=== PATIENT | female | born 1980 | race Caucasian/White ===

== ENCOUNTER 2018-07-06 22:14 | Inpatient (IN) ==
[2018-07-06] MEDS ORDERED: Sodium Chlor 0.9% Inj 500 ML IV.SIG ONE (22:59)
[2018-07-06] MEDS ORDERED: Vancomycin Inj 1,000 MG in Sodium Chlor 0.9% Inj 250 ML IV.SIG ONE (23:00)
[2018-07-06] MEDS ORDERED: Acetaminophen 325 MG Tablet PO ONE (23:00)
[2018-07-06] MEDS ORDERED: Piperacil/Tazo 3.375 GM Premix 50 ML IV.SIG ONE (23:00)
--- NOTE | 2018-07-06 23:32 | XR ---
EXAM DATE: 07/06/2018 11:27 PM EST AGE/SEX: 38 years / Female INDICATIONS: Shortness of breath. CLINICAL DATA: This is the patient's initial encounter. Patient reports that signs and symptoms have been present for 1 week and indicates a pain score of 10/10. MEDICAL/SURGICAL HISTORY: Diabetes. Hypertension. Myocardial infarction. . Coronary artery s tent COMPARISON: . FINDINGS: Single AP view the chest. The lungs are clear. Cardiomediastinal silhouette within normal limits. No evidence of pleural effusion or pneumothorax. CONCLUSION: No acute cardiopulmonary disease identified. Electronically signed by: Luis Felipe Mcfadden MD 07/06/2018 11:31 PM EST
[2018-07-06 23:34] LABS: Baso # (Auto) 0.1 th/mm3 (0.0-0.2); Baso % (Auto) 1.1 % (0.0-2.0); Eos # (Auto) 0.2 th/mm3 (0.0-0.4); Eos % (Auto) 1.9 % (0.0-4.0); Hematocrit 40.7 % (35.0-46.0); Hemoglobin 14.1 gm/dL (11.6-15.3); Lymph # (Auto) 4.1 th/mm3 (1.0-4.8); Mean Corpuscular HGB Conc 34.6 % (32.0-36.0); Mean Corpuscular Hemoglobin 29.5 pg (27.0-34.0); Mean Corpuscular Volume 85.2 fL (80.0-100.0); Mean Platelet Volume 7.9 fL (7.0-11.0); Mono # (Auto) 0.7 th/mm3 (0.0-0.9); Mono % (Auto) 5.8 % (0.0-8.0); Neut # (Auto) 6.4 th/mm3 (1.8-7.7); Neut % (Auto) 55.2 % (16.0-70.0); Platelet Count 298 th/mm3 (150-450); Red Blood Count 4.78 mil/mm3 (4.00-5.30); Red Cell Distribution Width 14.3 % (11.6-17.2); White Blood Count 11.5 th/mm3 (4.0-11.0)
--- NOTE | 2018-07-06 23:39 | XR ---
EXAM DATE: 07/06/2018 11:30 PM EST AGE/SEX: 38 years / Female INDICATIONS: Right foot pain. CLINICAL DATA: This is the patient's initial encounter. Patient reports that signs and symptoms have been present for 1 day and indicates a pain score of 10/10. MEDICAL/SURGICAL HISTORY: Diabetes. Hypertension. Myocardial infarction. Coronary artery sten t. COMPARISON: . FINDINGS: 3 views of the right foot. Moderate-sized plantar calcaneal spur. Small Achilles calcaneal spur. Mode rate-sized spur at the dorsal margin of the talar head. Bone alignment within normal limits. Vertical linear lucency through the central navicular on a single AP view. This indicates possible acute nond isplaced fracture. There is a fracture of the fifth toe proximal phalanx with advanced bone callus fo rmation suggesting an old fracture. CONCLUSION: 1. Possible acute nondisplaced vertical fracture of the mid navicular bone. Recommend correlation wi th the site of the patient's pain. This is seen on only one view. 2. Old fifth toe proximal phalanx fracture. 3. Calcaneal spurs. Electronically signed by: Luis Felipe Mcfadden MD 07/06/2018 11:37 PM EST
--- NOTE | 2018-07-06 23:42 | XR ---
EXAM DATE: 07/06/2018 11:29 PM EST AGE/SEX: 38 years / Female INDICATIONS: Left foot heel pain. CLINICAL DATA: This is the patient's initial encounter. Patient reports that signs and symptoms have been present for 1 day and indicates a pain score of 10/10. MEDICAL/SURGICAL HISTORY: Diabetes. Myocardial infarction. Hypertension. Coronary artery sten t. COMPARISON: . FINDINGS: 3 views of the left foot. There is deformity of the base of the second toe proximal phalanx with exte nsive periosteal new bone and possible old bone erosion. Marginal bone erosions of the second toe met atarsal head noted. No evidence of acute fracture. Dorsal spur at the head of the talus. 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 Calcaneus is within normal limits. CONCLUSION: 1. No evidence of acute fracture. 2. Deformity of the second toe proximal phalanx base and erosion of the second metatarsal head. Find ings suggest chronic erosive arthritis. Difficult diagnosis includes rheumatoid arthritis and gout. 3. 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 No sit e of tarsal coalition is identified. Electronically signed by: Luis Felipe Mcfadden MD 07/06/2018 11:41 PM EST
[2018-07-06 23:48] LABS: Activated Partial Thrombo Time 25.8 sec (23.4-31.7); Prothrombin Time 9.8 sec (9.8-11.6)
[2018-07-06 23:50] LABS: Bacteria,Urine Occasional /hpf; Bilirubin,Urine Negative (Negative); Clarity,Urine Cloudy (Clear); Color,Urine Yellow (Yellw/Straw); Glucose,Urine (UA) 500 or Greater mg/dL (Negative); Leukocyte Esterase,Urine Large (Negative); Mucus,Urine Few /lpf (Occasional); Nitrite,Urine Negative (Negative); Specific Gravity,Urine 1.016 (1.002-1.035); Squamous Epithelial Cell,Urine 6 /hpf (0-5)
[2018-07-06 23:53] LABS: Albumin 3.1 g/dL (3.4-5.0); Anion Gap 8 meq/L (5-15); Aspartate Aminotransferase 16 U/L (15-37); Blood Urea Nitrogen 12 mg/dL (7-18); Calcium 8.6 mg/dL (8.5-10.1); Carbon Dioxide 25.5 meq/L (21.0-32.0); Chloride 102 meq/L (98-107); Glomerular Filtration Rate 75 mL/min (>89); Glucose,Random 265 mg/dL (74-106); Lipase 285 U/L (73-393); Magnesium 1.7 mg/dL (1.5-2.5); Potassium 3.6 meq/L (3.5-5.1); Sodium 135 meq/L (136-145)
[2018-07-06 23:54] LABS: Alanine Aminotransferase 20 U/L (10-53)
[2018-07-06 23:58] LABS: Alkaline Phosphatase 98 U/L (45-117); Total Protein 7.4 g/dL (6.4-8.2)
[2018-07-06] MEDS ORDERED: Gabapentin 300 MG Capsule PO ONE (23:59)
--- NOTE | 2018-07-07 00:47 | ED ---
HPI General Chief complaint: Skin/Abscess/Foreign Body Stated complaint: Swollen R & L feet Time Seen by Provider: 07/06/18 22:41 Source: patient Mode of arrival: ambulatory Limitations: no limitations History of Present Illness HPI narrative: The patient is a 38 year old female who presents to the [facility] emergency department with a history of left foot pain that she reports is been present since February 2017. She reports that at that time she did undergo surgical debridement of her foot along a callus along the heel, and an area on the ball of the foot. The patient reports that this was in [place]. The patient reports that she is recently moved to the area a few weeks ago. The patient reports having a history of diabetes, hypertension, hyperlipidemia, diabetic neuropathy, and coronary artery disease status post myocardial infarction x2. The patient reports that she was diagnosed with diabetes in 2005. The patient has not established with a primary care physician locally. The patient reports that she has been out of all of her chronic medications except for insulin he had a low-dose aspirin since July 2017. She denies having any known fevers. The patient reports that 4-5 days ago she began to have swelling and pain in the right foot. The patient reports that she is also recently developed an area of erythema along the lateral aspect of the left foot. She denies any injuries to her feet, trauma, or fall. On review of systems otherwise, the patient denies having any cough, congestion, neck pain, chest pain, shortness of breath, abdominal pain, vomiting , diarrhea, urinary symptoms, or neurologic symptoms. Patient reports that her last bowel movement was yesterday. Related Data Home Medications Medication Instructions Recorded Confirmed aspirin [Aspir-81] 81 mg PO DAILY 07/06/18 07/06/18 atorvastatin 10 mg PO DAILY 07/06/18 07/06/18 carvedilol 3.125 mg PO BID 07/06/18 07/06/18 gabapentin 300 mg PO TID 07/06/18 07/06/18 isosorbide mononitrate 30 mg PO DAILY 07/06/18 07/06/18 meloxicam 15 mg PO DAILY 07/06/18 07/06/18 metformin 500 mg PO BID 07/06/18 07/06/18 nitroglycerin [Nitrostat] 0.4 mg SUBLINGUAL Q5-15M PRN 07/06/18 07/06/18 pantoprazole 40 mg PO DAILY 07/06/18 07/06/18 ramipril 2.5 mg PO DAILY 07/06/18 07/06/18 ticagrelor [Brilinta] 90 mg PO BID 07/06/18 07/06/18 Allergies Allergy/AdvReac Type Severity Reaction Status Date / Time citalopram Allergy Intermediate NAUSEA Verified 07/06/18 22:31 tramadol Allergy Intermediate NAUSEA Verified 07/06/18 22:31 ketorolac Allergy Unknown Hives Verified 07/06/18 22:31 morphine Allergy Unknown Hives Verified 07/06/18 22:31 Review of Systems ROS: all other systems reviewed are negative [facility] Medical History Medical History Diabetes (Acute) Diabetic neuropathy (Acute) Hyperlipidemia (Acute) Myocardial infarct (Acute) Surgical History Surgical History H/O heart artery stent (Acute) Hx of cholecystectomy (Acute) S/P debridement (Acute) Family History Family History Grandparent HTN (hypertension) Diabetes Social History Social History Substance History: No History of Abuse Second Hand Smoke Exposure: Yes Smoking Status: Current every day smoker Tobacco Type: Cigarettes Packs Per Day: 1 Cigarettes Per Day: 20.0 How Often Do You Have a Drink Containing Alcohol: Never Recent Travel in [facility] within the Last 8 Weeks: No Recent Out of Country Travel within the Last 8 Weeks: No Immunization History Tetanus Immunization: Unsure Exam Const General: cooperative, no acute distress and well developed Nutritional Appearance: well nourished Orientation: alert, awake and oriented x3 HENMT Head: normocephalic and atraumatic Nose: no nasal discharge and no epistaxis Mouth: moist mucous membranes Throat: posterior oropharynx normal and uvula midline Eyes Sclera: normal sclerae Pupils: PERRL Neck Neck: no meningeal signs, trachea midline and no JVD Resp Effort & Inspection: no use of accessory muscles Auscultation: clear to auscultation bilaterally Cardio Rate: regular rate Rhythm: regular rhythm Heart Sounds: no murmurs GI Inspection: non-distended Palpation: soft, no hepatosplenomegaly, no guarding, not rigid and nontender Auscultation: normal bowel sounds Back/Spine/Pelvis Back: no CVA tenderness Skin General: dry skin (warm) Neuro General: alert, awake, oriented x3 and other (Grossly nonfocal.) Speech: speech normal Motor: no movement abnormalities noted Extrem General: normal to inspection, no clubbing, no cyanosis and edema (The patient is noted to have pedal edema involving the right foot. The patient on examination of the left foot is noted to have tenderness on palpation of the second digit, erythema along the lateral aspect of the left foot, callus noted along the posterior aspect of the left sole, overlying the lateral aspect of the heel. No active drainage at this time. She reports that when she walks on the foot she does notice some drainage. 2+ pulses in all 4 extremities. Soft compartments noted. Intact sensation over all digits. Less than 3-second capillary refill.) Psych Mood: congruent mood Affect: normal affect Judgment: judgment good Course Initial Documented Vital Signs Temperature 97.6 F 07/06/18 22:25 Pulse Rate 99 H 07/06/18 22:25 Respiratory Rate 20 07/06/18 22:25 Blood Pressure 168/95 H 07/06/18 22:25 Pulse Oximetry 99 07/06/18 22:25 Last Documented Vital Signs Temperature 97.7 F 07/07/18 05:19 Pulse Rate 79 07/07/18 05:19 Respiratory Rate 12 07/07/18 05:19 Blood Pressure 128/75 07/07/18 05:19 Pulse Oximetry 95 07/07/18 05:19 Medical Decision Making [facility] Narrative Medical decision making narrative: During the course of the patient's emergency department visit, the patient's history, examination, and differential diagnosis were reviewed with the patient. The patient was placed on a image editor with oximetry and frequent blood pressure monitoring. The patient had IV access obtained and blood work sent for analysis. A diagnostic evaluation was started regarding the patient bilateral feet pain. The patient was initially provided Tylenol 650 p.o. x1, Neurontin 300 mg p.o. x1 as the patient has been on this in the past with pain relief regarding her neuropathy. Patient had a sepsis workup started as she did arrive tachycardic with a heart rate of 99, Zosyn and vancomycin was started, as she does have an area of cellulitis along lateral foot. The patient's diagnostic studies are remarkable for a white count of 11.5, hemoglobin 14.1, platelets 298 with a normal differential, PT PTT within normal limits, chemistries remarkable for sodium 135, glucose 265 bilirubin 0.1, troponin I less than 0.02, lipase within normal limits. Urinalysis shows large leukocyte esterase 9 RBCs, WBCs innumerable, many, occasional bacteria, culture indicated. CHEST X-RAY: shows no acute cardiopulmonary disease, right foot x- ray reveals possible acute nondisplaced vertical fracture of the mid navicular bone, recommend correlation with the site of the patient's pain. The patient has diffuse pain on palpation, therefore CT scan of the right foot has been ordered to evaluate for possible occult fracture, old fifth toe proximal phalanx fracture, calcaneal spurs are noted. An x-ray of the left foot reveals no evidence of acute fracture. Deformity of second toe proximal phalanx base and erosion of the second metatarsal head is noted, findings suggest chronic erosive arthritis, difficult differential diagnosis includes rheumatoid arthritis and gout. Prominent dorsal bone spur at the talus is a finding sometimes seen with tarsal correlation no site of tarsal coalition is identified. CT scan of the right foot shows a nondisplaced acute fracture of the navicular bone. Subacute to old fracture of the fifth proximal phalanx with bone callus/ advanced bone bridging. The patient was placed in a short posterior leg splint. The patient was given Dilaudid for pain, Zofran for nausea. The patient will be admitted to the hospital for a cellulitis of the left lower extremity. The patient's case including history, pertinent physical examination findings, and laboratory studies were discussed with Dr. Howell. It was agreed that the patient would be admitted to the hospitalist service. The patient's results were discussed with the patient, including the plan of care. I explained that further testing and/ or monitoring is indicated based on the patient's history, examination, and/ or laboratory findings. Therefore, I recommended admission for additional evaluation. The patient expressed understanding and was agreeable with this plan. The patient was admitted to the hospital in stable condition and sent to a bed under the care of the [facility] service. Medical Screen Exam Complete: Yes Emergency Medical Condition: Yes Differential Diagnosis Differential Diagnosis: Cellulitis, versus sepsis, versus osteomyelitis, versus stress fracture, versus neuropathy Medical Records Medical records reviewed: Yes I reviewed the patient's medical records. Lab Data Lab results reviewed: Yes I reviewed the patient's lab results. Result diagrams: 07/06/18 23:25 07/06/18 23:25 POC Results POC Urine Results Negative Lab Results 07/06/18 07/06/18 07/06/18 Range/Units 23:25 23:25 23:25 WBC 11.5 H (4.0-11.0) th/mm3 RBC 4.78 (4.00-5.30) mil/mm3 Hgb 14.1 (11.6-15.3) gm/dL Hct 40.7 (35.0-46.0) % MCV 85.2 (80.0-100.0) fL MCH 29.5 (27.0-34.0) pg MCHC 34.6 (32.0-36.0) % RDW 14.3 (11.6-17.2) % Plt Count 298 (150-450) th/mm3 MPV 7.9 (7.0-11.0) fL Neut % (Auto) 55.2 (16.0-70.0) % Lymph % (Auto) 36.0 (9.0-44.0) % Kern % (Auto) 5.8 (0.0-8.0) % Eos % (Auto) 1.9 (0.0-4.0) % Baso % (Auto) 1.1 (0.0-2.0) % Neut # (Auto) 6.4 (1.8-7.7) th/mm3 Lymph # (Auto) 4.1 (1.0-4.8) th/mm3 Kern # (Auto) 0.7 (0.0-0.9) th/mm3 Eos # (Auto) 0.2 (0.0-0.4) th/mm3 Baso # (Auto) 0.1 (0.0-0.2) th/mm3 WBC Differential . Differential Comment Auto diff final ESR (0-20) mm/hr PT 9.8 (9.8-11.6) sec INR 1.0 Ratio APTT 25.8 (23.4-31.7) sec Sodium 135 L (136-145) meq/L Potassium 3.6 (3.5-5.1) meq/L Chloride 102 (98-107) meq/L Carbon Dioxide 25.5 (21.0-32.0) meq/L Anion Gap 8 (5-15) meq/L BUN 12 (7-18) mg/dL Creatinine 0.85 (0.50-1.00) mg/dL Estimated GFR 75 L (>89) mL/min Random Glucose 265 H (74-106) mg/dL Lactic Acid (0.4-2.0) mmol/L Calcium 8.6 (8.5-10.1) mg/dL Magnesium 1.7 (1.5-2.5) mg/dL Total Bilirubin 0.1 L (0.2-1.0) mg/dL AST 16 (15-37) U/L ALT 20 (10-53) U/L Alkaline Phosphatase 98 (45-117) U/L Troponin I Less than 0.02 L (0.02-0.05) ng/mL Total Protein 7.4 (6.4-8.2) g/dL Albumin 3.1 L (3.4-5.0) g/dL Lipase 285 (73-393) U/L Urine Color (Yellw/Straw) Urine Clarity (Clear) Urine pH (5.0-8.5) Ur Specific Mora (1.002-1.035) Urine Protein (Neg-Trace) mg/dL Urine Glucose (UA) (Negative) mg/dL Urine Ketones (Negative) mg/dL Urine Occult Blood (Negative) Urine Nitrate (Negative) Urine Bilirubin (Negative) Urine Urobilinogen (Less than 2) mg/dL Ur Leukocyte Esterase (Negative) Urine RBC (0-3) /hpf Urine WBC (0-5) /hpf Urine WBC Clumps (None) Ur Squamous Epith Cells (0-5) /hpf Urine Bacteria (None) /hpf Urine Mucus (Occasional) /lpf Micro UA Comment Ur Microscopic Review Urine Culture Comments 07/06/18 07/06/18 07/06/18 Range/Units 23:25 23:25 23:35 WBC (4.0-11.0) th/mm3 RBC (4.00-5.30) mil/mm3 Hgb (11.6-15.3) gm/dL Hct (35.0-46.0) % MCV (80.0-100.0) fL MCH (27.0-34.0) pg MCHC (32.0-36.0) % RDW (11.6-17.2) % Plt Count (150-450) th/mm3 MPV (7.0-11.0) fL Neut % (Auto) (16.0-70.0) % Lymph % (Auto) (9.0-44.0) % Kern % (Auto) (0.0-8.0) % Eos % (Auto) (0.0-4.0) % Baso % (Auto) (0.0-2.0) % Neut # (Auto) (1.8-7.7) th/mm3 Lymph # (Auto) (1.0-4.8) th/mm3 Kern # (Auto) (0.0-0.9) th/mm3 Eos # (Auto) (0.0-0.4) th/mm3 Baso # (Auto) (0.0-0.2) th/mm3 WBC Differential Differential Comment ESR 16 (0-20) mm/hr PT (9.8-11.6) sec INR Ratio APTT (23.4-31.7) sec Sodium (136-145) meq/L Potassium (3.5-5.1) meq/L Chloride (98-107) meq/L Carbon Dioxide (21.0-32.0) meq/L Anion Gap (5-15) meq/L BUN (7-18) mg/dL Creatinine (0.50-1.00) mg/dL Estimated GFR (>89) mL/min Random Glucose (74-106) mg/dL Lactic Acid 0.9 (0.4-2.0) mmol/L Calcium (8.5-10.1) mg/dL Magnesium (1.5-2.5) mg/dL Total Bilirubin (0.2-1.0) mg/dL AST (15-37) U/L ALT (10-53) U/L Alkaline Phosphatase (45-117) U/L Troponin I (0.02-0.05) ng/mL Total Protein (6.4-8.2) g/dL Albumin (3.4-5.0) g/dL Lipase (73-393) U/L Urine Color Yellow (Yellw/Straw) Urine Clarity Cloudy H (Clear) Urine pH 6.0 (5.0-8.5) Ur Specific Mora 1.016 (1.002-1.035) Urine Protein 30 H (Neg-Trace) mg/dL Urine Glucose (UA) 500 or greater (Negative) mg/dL Urine Ketones Negative (Negative) mg/dL Urine Occult Blood Negative (Negative) Urine Nitrate Negative (Negative) Urine Bilirubin Negative (Negative) Urine Urobilinogen Less than 2 (Less than 2) mg/dL Ur Leukocyte Esterase Large H (Negative) Urine RBC 9 H (0-3) /hpf Urine WBC (0-5) /hpf Urine WBC Clumps Many H (None) Ur Squamous Epith Cells 6 (0-5) /hpf Urine Bacteria Occasional H (None) /hpf Urine Mucus Few H (Occasional) /lpf Micro UA Comment Culture indicated Ur Microscopic Review Not Reportable Urine Culture Comments Culture indicated Imaging Data Radiologist's impression: Foot X-Ray 07/06/18 22:56 CONCLUSION: 1. No evidence of acute fracture. 2. Deformity of the second toe proximal phalanx base and erosion of the second metatarsal head. Findings suggest chronic erosive arthritis. Difficult diagnosis includes rheumatoid arthritis and gout. 3. 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 No site of tarsal coalition is identified. Foot X-Ray 07/06/18 22:56 CONCLUSION: 1. Possible acute nondisplaced vertical fracture of the mid navicular bone. Recommend correlation with the site of the patient's pain. This is seen on only one view. 2. Old fifth toe proximal phalanx fracture. 3. Calcaneal spurs. Chest X-Ray 07/06/18 22:57 CONCLUSION: No acute cardiopulmonary disease identified. Foot CT 07/07/18 00:02 CONCLUSION: 1. Nondisplaced acute fracture of the navicular. 2. Subacute to old fracture of the fifth proximal phalanx with bone callus/ advanced bone bridging. ECG Data Attestation: I personally reviewed and interpreted this ECG as follows: Interpretation: The patient had an EKG done on arrival that shows a sinus rhythm heart rate of 80, QRS duration 91 ms, QTC [address] segment elevation. T waves are inverted in lead III, V1. Discharge Plan Discharge Disposition Patient Disposition: ED Admit(ED Internal Use Only) Discharge Order Discharge Orders: ED Use Only Admit Order (Routine); Ordered 07/07/18 Ordered By: Odalys Redman Discharge Details Diagnosis: Fx navicular, foot-closed, Cellulitis Physicians Team ED Provider: Odalys Redman Primary Care Provider: Primary Care Flor Alcantara Attending Provider: Cristian Canas Other Providers: Hailey Benson Status ED Status: Left Department Discharge Information Discharge Date/Time: 07/07/18 03:51
--- NOTE | 2018-07-07 02:11 | CT ---
EXAM DATE: 07/07/2018 1:57 AM EST AGE/SEX: 38 years / Female INDICATIONS: Evaluate for fracture. CLINICAL DATA: This is the patient's initial encounter. Patient reports that signs and symptoms have been present for 3 months and indicates a pain score of 5/10. MEDICAL/SURGICAL HISTORY: Cardiovascular disease. Diabetes mellitus type II. Coronary artery stent . Cholecystectomy. RADIATION DOSE: 8.56 CTDI (mGy) COMPARISON: None. TECHNIQUE: Multiple contiguous axial images were acquired using a multirow detector CT scanner witho ut contrast. Multiplanar reconstruction was performed in the sagittal and coronal planes. Using auto mated exposure control and adjustment of the mA and/or kV according to patient size, radiation dose w as kept as low as reasonably achievable to obtain optimal diagnostic quality images. DICOM format im age data is available electronically for review and comparison. FINDINGS: There is a nondisplaced acute vertical fracture of the central navicular. No advanced bone bridging. Bone alignment within normal limits. No evidence of an old healed fracture of the fifth toe proximal phalanx. Soft tissues within normal limits. CONCLUSION: 1. Nondisplaced acute fracture of the navicular. 2. Subacute to old fracture of the fifth proximal phalanx with bone callus/advanced bone bridging. Electronically signed by: Luis Felipe Mcfadden MD 07/07/2018 2:09 AM EST
[2018-07-07] MEDS ORDERED: HYDROmorphone PF Inj 0.5 MG/0.5 ML Syringe IV.PUSH ONE (02:26)
[2018-07-07] MEDS ORDERED: Bisacodyl 10 MG Supp RECTAL PRN (03:01)
[2018-07-07] MEDS ORDERED: Dextrose 50% in Water 50 ML Vial IV.PUSH PRN (03:05)
[2018-07-07] MEDS ORDERED: Vancomycin Consult Pharmacy OTHER PRN (03:05)
[2018-07-07] MEDS: Sod Chloride 0.9% Inj 1,000 ML IV.CONT SCH ×2 (04:52→17:33)
--- NOTE | 2018-07-07 05:10 | P.HPIM ---
History of Present Illness Service: [facility] Primary Care Physician: No Primary Care Physician Chief Complaint: Left foot pain History of Present Illness: 38 y/o female with a history of HTN, HLD, diabetic neuropathy, [place], and DM presented to the ER with complaints of left foot pain. She states in February she underwent a I&D of her left heel and it has not healed since. She states over the last 4 days the pain has increased. She states the pain is throbbing, intermittent, 8/10, worse with movement, no radiation or associated symptoms. She states otc tylenol and motrin has not been helping. She states she has been out of her chronic medications since August due to loss in medicaid. She denies any chest pain, sob, fever or chills. Upon evaluation in ER patient was found to have a pain with palpation to the top of the right foot, x ray reveled a Nondisplaced acute fracture of the navicular. Inpatient Certification Inpatient Certification: I certify that the inpatient services were ordered in accordance with Medicare regulations governing the order. This includes certification that hospital inpatient services are reasonable and necessary and in the case of services not specified as inpatient-only under 42 CFR 419.22(n), that they are appropriately provided as inpatient services in accordance to with the 2-midnight benchmark under 43 CFR 412.3(e) Estimated Total Length of Stay (Days): 2 Plans for Post Hospital Care: Home Review of Systems Review of Systems: all other systems reviewed are negative [facility] Medical History Medical History Diabetes (Acute) Diabetic neuropathy (Acute) Hyperlipidemia (Acute) Myocardial infarct (Acute) Surgical History Surgical History H/O heart artery stent (Acute) Hx of cholecystectomy (Acute) S/P debridement (Acute) Family History Family History Grandparent HTN (hypertension) Diabetes Social History Social History Substance History: No History of Abuse Smoking Status: Current every day smoker Tobacco Type: Cigarettes Packs Per Day: 1 Cigarettes Per Day: 20.0 How Often Do You Have a Drink Containing Alcohol: Never Recent Travel in [facility] within the Last 8 Weeks: No Recent Out of Country Travel within the Last 8 Weeks: No Immunization History Tetanus Immunization: Unsure Medications and Allergies Allergies Allergy/AdvReac Type Severity Reaction Status Date / Time citalopram Allergy Intermediate NAUSEA Verified 07/06/18 22:31 tramadol Allergy Intermediate NAUSEA Verified 07/06/18 22:31 ketorolac Allergy Unknown Hives Verified 07/06/18 22:31 morphine Allergy Unknown Hives Verified 07/06/18 22:31 Home Medications Medication Instructions Recorded Confirmed Type aspirin [Aspir-81] 81 mg PO DAILY 07/06/18 07/06/18 History atorvastatin 10 mg PO DAILY 07/06/18 07/06/18 History carvedilol 3.125 mg PO BID 07/06/18 07/06/18 History gabapentin 300 mg PO TID 07/06/18 07/06/18 History isosorbide mononitrate 30 mg PO DAILY 07/06/18 07/06/18 History meloxicam 15 mg PO DAILY 07/06/18 07/06/18 History metformin 500 mg PO BID 07/06/18 07/06/18 History nitroglycerin [Nitrostat] 0.4 mg SUBLINGUAL Q5-15M PRN 07/06/18 07/06/18 History pantoprazole 40 mg PO DAILY 07/06/18 07/06/18 History ramipril 2.5 mg PO DAILY 07/06/18 07/06/18 History ticagrelor [Brilinta] 90 mg PO BID 07/06/18 07/06/18 History Active Medications: Active Medications Hydrocodone Bitart/Acetaminophen ([place] 5/325) 1 tab PO Q4H PRN PRN Reason: PAIN 1-10 AND/OR FEVER >101F Al Hydroxide/Mg Hydroxide (Milk Of Magnesia Liq) 30 ml PO Q12H PRN PRN Reason: Mild Constipation Bisacodyl (Dulcolax Supp) 10 mg RECTAL DAILY PRN PRN Reason: SEVERE CONSITIPATION Dextrose (D50w Vial) 50 ml IV.PUSH UNSCH PRN PRN Reason: PER HYPOGLYCEMIA PROTOCOL Glucagon (Glucagon Inj) 1 mg OTHER PRN PRN PRN Reason: for Hypoglycemia Protocol Sodium Chloride (Ns Inj) 1,000 mls @ 100 mls/hr IV.CONT .Q10H [facility] Last Admin: 07/07/18 04:52 Dose: 100 mls/hr Piperacillin/Tazobactam/Dextrose (Zosyn 3.375 Gm Premix) 50 mls @ 100 mls/hr IV.SIG Q6H [facility] Insulin Aspart (Novolog Insulin Correctional Sugar Inj) 0 unit SQ ACHS [facility]; Protocol Lactulose (Lactulose Liq) 30 ml PO DAILY PRN PRN Reason: SEVERE CONSITIPATION Ondansetron HCl (Zofran Inj) 4 mg IV.PUSH Q6H PRN PRN Reason: NAUSEA OR VOMITING Pharmacy Profile Note (Vancomycin Consult Pharmacy) 1 each OTHER UNSCH PRN PRN Reason: Pharmacy to dose Sennosides (Senokot) 17.2 mg PO Q12H PRN PRN Reason: Moderate Constipation Sodium Chloride (Ns Flush) 2 ml IV.FLUSH BID [facility] Sodium Chloride (Ns Flush) 2 ml IV.FLUSH PRN PRN PRN Reason: FLUSH AFTER USING IV ACCESS Physical Exam Vital signs: Last Vital Signs Temp 97.6 F 07/06/18 22:25 Pulse 83 07/07/18 03:34 Resp 16 07/07/18 03:50 BP 137/93 H 07/07/18 03:34 Pulse Ox 98 07/07/18 03:34 Intake & Output 07/04/18 07/05/18 07/06/18 07/07/18 06:59 06:59 06:59 06:59 Intake Total 800 / 800 Balance 800 / 800 Weight 87.543 kg Narrative: GENERAL: well nourished patient in no distress SKIN: Left heel thick black wound open, no drainage, surrounding redness, painful to touch EYES: Pupils equal and round. No scleral icterus. No injection or drainage. CARDIOVASCULAR: Regular rate and rhythm. RESPIRATORY: No accessory muscle use. Clear to auscultation. Breath sounds equal bilaterally. GASTROINTESTINAL: Abdomen soft, non-tender, nondistended. Hepatic and splenic margins not palpable. MUSCULOSKELETAL: Mild edema to left foot, right foot in soft split NEUROLOGICAL: Awake and alert. No obvious cranial nerve deficits. Motor grossly within normal limits. Normal speech. Results Labs CBC & Chem 7: 07/06/18 23:25 07/06/18 23:25 Imaging Impressions Foot X-Ray 07/06/18 22:56 CONCLUSION: 1. No evidence of acute fracture. 2. Deformity of the second toe proximal phalanx base and erosion of the second metatarsal head. Findings suggest chronic erosive arthritis. Difficult diagnosis includes rheumatoid arthritis and gout. 3. 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 No site of tarsal coalition is identified. Foot X-Ray 07/06/18 22:56 CONCLUSION: 1. Possible acute nondisplaced vertical fracture of the mid navicular bone. Recommend correlation with the site of the patient's pain. This is seen on only one view. 2. Old fifth toe proximal phalanx fracture. 3. Calcaneal spurs. Chest X-Ray 07/06/18 22:57 CONCLUSION: No acute cardiopulmonary disease identified. Foot CT 07/07/18 00:02 CONCLUSION: 1. Nondisplaced acute fracture of the navicular. 2. Subacute to old fracture of the fifth proximal phalanx with bone callus/ advanced bone bridging. Caprini VTE Risk Assessment Caprini VTE Risk Assessment: No/Low Risk (score <= 1) Caprini Risk Assessment Model: Point Value = 1 Point Value = 2 Point Value = 3 Point Value = 5 Age 41-60 Minor surgery BMI > 25 kg/m2 Swollen legs Varicose veins or History of unexplained or recurrent spontaneous Oral contraceptives or hormone replacement Sepsis (< 1 month) Serious lung disease, including pneumonia (< 1 month) Abnormal pulmonary function Acute myocardial infarction Congestive heart failure (< 1 month) History of inflammatory bowel disease Medical patient at bed rest Age 61-74 Arthroscopic surgery Major open surgery (> 45 min) Laparoscopic surgery (> 45 min) Malignancy Confined to bed (> 72 hours) Immobilizing plaster cast Central venous access Age >= 75 History of VTE Family history of VTE Factor V Leiden Prothrombin [id number] Lupus anticoagulant Anticardiolipin antibodies Elevated serum homocysteine Heparin-induced thrombocytopenia Other congenital or acquired thrombophilia Stroke (< 1 month) Elective arthroplasty Hip, pelvis, or leg fracture Acute spinal cord injury (< 1 month) Prophylaxis Regimen: Total Risk Factor Score Risk Level Prophylaxis Regimen 0-1 Low Early ambulation 2 Moderate Order ONE of the following: *Sequential Compression Device (SCD) *Heparin 5000 units SQ BID 3-4 Higher Order ONE of the following medications: *Heparin 5000 units SQ TID *Enoxaparin/Lovenox 40 mg SQ daily (WT < 150 kg, CrCl > 30 mL/min) *Enoxaparin/Lovenox 30 mg SQ daily (WT < 150 kg, CrCl > 10-29 mL/min) *Enoxaparin/Lovenox 30 mg SQ BID (WT < 150 kg, CrCl > 30 mL/min) AND/OR *Sequential Compression Device (SCD) 5 or more Highest Order ONE of the following medications: *Heparin 5000 units SQ TID (Preferred with Epidurals) *Enoxaparin/Lovenox 40 mg SQ daily (WT < 150 kg, CrCl > 30 mL/min) *Enoxaparin/Lovenox 30 mg SQ daily (WT < 150 kg, CrCl > 10-29 mL/min) *Enoxaparin/Lovenox 30 mg SQ BID (WT < 150 kg, CrCl > 30 mL/min) AND *Sequential Compression Device (SCD) Assessment and Plan Plan 38 y/o female with a history of HTN, HLD, diabetic neuropathy, [place], and DM presented to the ER with complaints of left foot pain. Cellulitis with necrotic left heel -IV antibiotics vancomycin and zosyn -Consult podiatry Nondisplaced acute fracture of the navicular, acute -Splint in place, await podiatry recommendations -Pain management with po norco UTI UA shows leukocyte esterase, wbc clumps -Await culture -cont IV as above DM, chronic -Accu checks with SSI -a1c ordered HTN, chronic -Resume home medications -Patient will need assistance at discharge with follow up and medications DVT prophylaxis: SCDs
[2018-07-07] MEDS: Piperacil/Tazo 3.375 GM Premix 50 ML IV.SIG SCH ×3 (07:02→18:14)
[2018-07-07] MEDS: Isosorbide Mononitrate 30 MG ER 24HR Tablet (Imdur) PO SCH (08:46)
[2018-07-07] MEDS: Gabapentin 300 MG Capsule PO SCH ×3 (08:46→17:31)
[2018-07-07] MEDS: Insulin NovoLOG Aspart Correctional Sugar Inj SQ SCH ×4 (10:08→20:43)
[2018-07-07] MEDS ORDERED: Pharmacy Ordered Lab Info OTHER ONE (11:00)
[2018-07-07] MEDS: Vancomycin Inj 1,500 MG in Sodium Chlor 0.9% Inj 500 ML IV.SIG SCH (13:18)
--- NOTE | 2018-07-07 14:46 | P.PNADD ---
Addendum to Inpatient Note Reason for Addendum: Additional Documentation Additional information: Clear lungs bilaterally, unlabored breathing Heart sounds regular rate and rhythm Abdomen soft Left heel appears to have a necrotic ulcer at the base, no purulent drainage, very trace erythema which is not impressive of cellulitis Right foot is wrapped in a splint, from what I was able to unwrap and examined over the heel there is no cellulitis but the patient has tenderness elicited upon deep palpation of the medial malleolus and adjacent regions with no erythema or edema noted, she has intact sensation of her right foot grossly to light touch continue abx for left necrotic ulcer and maintain splint on right foot until podiatry decides
[2018-07-07 16:44] LABS: Hemoglobin A1c 10.6 % (4.3-6.0)
--- NOTE | 2018-07-07 21:31 | P.CON ---
History of Present Illness Service: Foot and Ankle Surgery/Podiatry Consult date: 07/07/18 Reason for Consult: Right goot fracture, Left heel ulcer Primary Care Provider: No Primary Care Physician Chief Complaint: Left foot pain History of Present Illness: Podiatry consulted for this 38 year old with a history of HTN, HLD, diabetic neuropathy, [place], and DM presented to the ER with complaints of left foot pain. Patient states that her heel has not healed since February when she had an I&D. Patient states her pain is dull and throbbing. She is aggravated she has remained NPO and has not had anything to eat. States she had pain to right foot , Xray revealed a vertical non displaced fracture of the right foot. She denies any N, V, F, Ch. She states she does not have a travel occupational therapist and it was been a long time since she has seen a travel occupational therapist. [facility] - History History Provided By: Patient - Medical History Medical History: Medical History (Last Reviewed 07/07/18 @ 04:59 by FREDIS Moran) Diabetes Diabetic neuropathy Hyperlipidemia Myocardial infarct - Surgical History Surgical History: Surgical History (Last Reviewed 07/07/18 @ 04:59 by FREDIS Moran) H/O heart artery stent Hx of cholecystectomy S/P debridement - Family History Family History: Family History (Last Reviewed 07/07/18 @ 05:01 by FREDIS Moran) Grandparent HTN (hypertension) Diabetes - Tobacco History Second Hand Smoke Exposure: Yes Tobacco Use In Past 30 Days: Yes Smoking Status: Current every day smoker Tobacco Type: Cigarettes Packs Per Day: 1 Cigarettes Per Day: 20.0 - Alcohol History How Often Do You Have a Drink Containing Alcohol: Never - Substance Use History Substance History: No History of Abuse - Travel History Recent Travel in the [place] Within the Last 8 Weeks: No Recent Travel Out of the Country Within the Last 8 Weeks: No - Immunization History Tetanus Immunization: Unsure Medications and Allergies Active Medications: Active Medications Hydrocodone Bitart/Acetaminophen (Fluker 5/325) 1 tab PO Q4H PRN PRN Reason: PAIN 1-10 AND/OR FEVER >101F Last Admin: 07/07/18 18:26 Dose: 1 tab Al Hydroxide/Mg Hydroxide (Milk Of Magnesia Liq) 30 ml PO Q12H PRN PRN Reason: Mild Constipation Atorvastatin Calcium (Lipitor) 10 mg PO HS [facility] Last Admin: 07/07/18 20:43 Dose: 10 mg Bisacodyl (Dulcolax Supp) 10 mg RECTAL DAILY PRN PRN Reason: SEVERE CONSITIPATION Carvedilol (Coreg) 3.125 mg PO BID [facility] Last Admin: 07/07/18 20:43 Dose: 3.125 mg Dextrose (D50w Vial) 50 ml IV.PUSH UNSCH PRN PRN Reason: PER HYPOGLYCEMIA PROTOCOL Gabapentin (Neurontin) 300 mg PO TID [facility] Last Admin: 07/07/18 17:31 Dose: 300 mg Glucagon (Glucagon Inj) 1 mg OTHER PRN PRN PRN Reason: for Hypoglycemia Protocol Sodium Chloride (Ns Inj) 1,000 mls @ 100 mls/hr IV.CONT .Q10H [facility] Last Admin: 07/07/18 17:33 Dose: 100 mls/hr Piperacillin/Tazobactam/Dextrose (Zosyn 3.375 Gm Premix) 50 mls @ 100 mls/hr IV.SIG Q6H [facility] Last Infusion: 07/07/18 18:54 Dose: Infused Vancomycin HCl 1,500 mg/ (Sodium Chloride) 515 mls @ 250 mls/hr IV.SIG Q12H [facility] Last Infusion: 07/07/18 16:50 Dose: Infused Insulin Aspart (Novolog Insulin Correctional Sugar Inj) 0 unit SQ ACHS [facility]; Protocol Last Admin: 07/07/18 20:43 Dose: 10 unit Isosorbide Mononitrate (Imdur) 30 mg PO DAILY [facility] Last Admin: 07/07/18 08:46 Dose: 30 mg Lactulose (Lactulose Liq) 30 ml PO DAILY PRN PRN Reason: SEVERE CONSITIPATION Miscellaneous Information ([facility] Ordered Lab Info) 0 each OTHER ONCE ONE Stop: 07/08/18 23:46 Ondansetron HCl (Zofran Inj) 4 mg IV.PUSH Q6H PRN PRN Reason: NAUSEA OR VOMITING Last Admin: 07/07/18 13:16 Dose: 4 mg Pantoprazole Sodium (Protonix) 40 mg PO DAILY [facility] Last Admin: 07/07/18 08:46 Dose: 40 mg Pharmacy Profile Note (Vancomycin Consult Pharmacy) 1 each OTHER UNSCH PRN PRN Reason: Pharmacy to dose Sennosides (Senokot) 17.2 mg PO Q12H PRN PRN Reason: Moderate Constipation Sodium Chloride (Ns Flush) 2 ml IV.FLUSH BID [facility] Last Admin: 07/07/18 20:43 Dose: Not Given Sodium Chloride (Ns Flush) 2 ml IV.FLUSH PRN PRN PRN Reason: FLUSH AFTER USING IV ACCESS Allergies Allergy/AdvReac Type Severity Reaction Status Date / Time citalopram Allergy Intermediate NAUSEA Verified 07/06/18 22:31 tramadol Allergy Intermediate NAUSEA Verified 07/06/18 22:31 ketorolac Allergy Unknown Hives Verified 07/06/18 22:31 morphine Allergy Unknown Hives Verified 07/06/18 22:31 Home Medications Medication Instructions Recorded Confirmed Type aspirin [Aspir-81] 81 mg PO DAILY 07/06/18 07/06/18 History atorvastatin 10 mg PO DAILY 07/06/18 07/06/18 History carvedilol 3.125 mg PO BID 07/06/18 07/06/18 History gabapentin 300 mg PO TID 07/06/18 07/06/18 History isosorbide mononitrate 30 mg PO DAILY 07/06/18 07/06/18 History meloxicam 15 mg PO DAILY 07/06/18 07/06/18 History metformin 500 mg PO BID 07/06/18 07/06/18 History nitroglycerin [Nitrostat] 0.4 mg SUBLINGUAL Q5-15M PRN 07/06/18 07/06/18 History pantoprazole 40 mg PO DAILY 07/06/18 07/06/18 History ramipril 2.5 mg PO DAILY 07/06/18 07/06/18 History ticagrelor [Brilinta] 90 mg PO BID 07/06/18 07/06/18 History Physical Exam Vital signs: Vital Signs 07/06/18 22:25 07/06/18 23:28 07/06/18 23:30 Temperature 97.6 F Pulse Rate 99 H 82 Respiratory Rate 20 16 Blood Pressure 168/95 H 143/94 H Pulse Oximetry 99 100 97 07/07/18 00:01 07/07/18 01:00 07/07/18 03:34 Temperature Pulse Rate 78 83 Respiratory Rate 16 16 16 Blood Pressure 153/95 H 137/93 H Pulse Oximetry 97 98 07/07/18 03:50 07/07/18 05:19 07/07/18 08:00 Temperature 97.7 F 97.4 F L Pulse Rate 79 89 Respiratory Rate 16 12 16 Blood Pressure 128/75 112/68 Pulse Oximetry 95 95 07/07/18 11:43 07/07/18 16:00 07/07/18 19:06 Temperature 97.8 F 96.5 F L Pulse Rate 80 72 Respiratory Rate 16 16 16 Blood Pressure 123/72 120/67 Pulse Oximetry 96 96 07/07/18 20:00 Temperature 97.5 F L Pulse Rate 80 Respiratory Rate 12 Blood Pressure 138/77 Pulse Oximetry 97 Intake & Output 07/07/18 07/07/18 07/08/18 06:59 18:59 06:59 Intake Total 800 / 800 1750 / 1750 Balance 800 / 800 1750 / 1750 Weight 87.54 kg Intake: IV 800 / 800 1250 / 1250 NS Inj 1,000 ML @ 100 mls/hr IV 600 / 600 .CONT .Q10H [facility] Rx#:[id number] Zosyn 3.375 GM Premix 50 ML @ 50 / 50 150 / 150 100 mls/hr IV.SIG Q6H [facility] Rx#: [id number] NS Inj 500 ML @ Wide Open IV. 500 / 500 SIG BOLUS ONE Rx#:[id number] Vancomycin Inj 1,000 MG In NS 250 / 250 Inj 250 ML @ 250 mls/hr IV.SIG ONCE ONE Rx#:[id number] Vancomycin Inj 1,500 MG In NS 500 / 500 Inj 500 ML @ 250 mls/hr IV.SIG Q12H [facility] Rx#:[id number] Oral 500 / 500 Other: # Voids 1 3 Date of Last Bowel Movement 07/06/18 Weight On Admission 87.54 kg Narrative: GENERAL: This is a well-nourished, well-developed patient, in no apparent distress. SKIN: Heel fissure noted to the left foot HEAD: Atraumatic. EYES: Pupils equal round and reactive. ENT: Airway patent. NECK: Trachea midline. RESPIRATORY: Nonlabored breathing. MUSCULOSKELETAL:. Negative Homans sign bilaterally. NEUROLOGICAL: Awake and alert. Normal speech. Lower extremity physical exam: Vascular: Dorsalis pedis 1/4, posterior tibial 1/4 left LE. Capillary refill time within normal limits to digits x5 bilateral foot. Edema present to the left heel. Neuro: Gross sensation intact to bilateral lower extremity. Pinpoint sensation intact. No hyperalgesia noted to bilateral lower extremity Dermatology: Heel fissure noted to left posterior lateral heel with hyperkeratotic skin present, erythematous borders with edema present. No drainage present to the heel fissure. Musculoskeletal: Tender to palpation to left foot and right foot dorsally. Posterior splint noted to the right LE. Results - Labs CBC & Chem 7: 07/06/18 23:25 07/06/18 23:25 Labs: Laboratory Results - last 24 hr 07/06/18 07/06/18 07/06/18 23:25 23:25 23:25 WBC 11.5 H RBC 4.78 Hgb 14.1 Hct 40.7 MCV 85.2 MCH 29.5 MCHC 34.6 RDW 14.3 Plt Count 298 MPV 7.9 Neut % (Auto) 55.2 Lymph % (Auto) 36.0 [place] % (Auto) 5.8 Eos % (Auto) 1.9 Baso % (Auto) 1.1 Neut # (Auto) 6.4 Lymph # (Auto) 4.1 [place] # (Auto) 0.7 Eos # (Auto) 0.2 Baso # (Auto) 0.1 WBC Differential . Differential Comment Auto diff final ESR PT 9.8 INR 1.0 APTT 25.8 Sodium 135 L Potassium 3.6 Chloride 102 Carbon Dioxide 25.5 Anion Gap 8 BUN 12 Creatinine 0.85 Estimated GFR 75 L POC Glucose Random Glucose 265 H Hemoglobin A1c Lactic Acid Calcium 8.6 Magnesium 1.7 Total Bilirubin 0.1 L AST 16 ALT 20 Alkaline Phosphatase 98 Troponin I Less than 0.02 L Total Protein 7.4 Albumin 3.1 L Lipase 285 Urine Color Urine Clarity Urine pH Ur Specific [place] Urine Protein Urine Glucose (UA) Urine Ketones Urine Occult Blood Urine Nitrate Urine Bilirubin Urine Urobilinogen Ur Leukocyte Esterase Urine RBC Urine WBC Urine WBC Clumps Ur Squamous Epith Cells Urine Bacteria Urine Mucus Micro UA Comment Ur Microscopic Review Urine Culture Comments 07/06/18 07/06/18 07/06/18 23:25 23:25 23:25 WBC RBC Hgb Hct MCV MCH MCHC RDW Plt Count MPV Neut % (Auto) Lymph % (Auto) [place] % (Auto) Eos % (Auto) Baso % (Auto) Neut # (Auto) Lymph # (Auto) [place] # (Auto) Eos # (Auto) Baso # (Auto) WBC Differential Differential Comment ESR 16 PT INR APTT Sodium Potassium Chloride Carbon Dioxide Anion Gap BUN Creatinine Estimated GFR POC Glucose Random Glucose Hemoglobin A1c 10.6 H Lactic Acid 0.9 Calcium Magnesium Total Bilirubin AST ALT Alkaline Phosphatase Troponin I Total Protein Albumin Lipase Urine Color Urine Clarity Urine pH Ur Specific [place] Urine Protein Urine Glucose (UA) Urine Ketones Urine Occult Blood Urine Nitrate Urine Bilirubin Urine Urobilinogen Ur Leukocyte Esterase Urine RBC Urine WBC Urine WBC Clumps Ur Squamous Epith Cells Urine Bacteria Urine Mucus Micro UA Comment Ur Microscopic Review Urine Culture Comments 07/06/18 07/07/18 07/07/18 23:35 08:34 12:31 WBC RBC Hgb Hct MCV MCH MCHC RDW Plt Count MPV Neut % (Auto) Lymph % (Auto) [place] % (Auto) Eos % (Auto) Baso % (Auto) Neut # (Auto) Lymph # (Auto) [place] # (Auto) Eos # (Auto) Baso # (Auto) WBC Differential Differential Comment ESR PT INR APTT Sodium Potassium Chloride Carbon Dioxide Anion Gap BUN Creatinine Estimated GFR POC Glucose 197 H 221 H Random Glucose Hemoglobin A1c Lactic Acid Calcium Magnesium Total Bilirubin AST ALT Alkaline Phosphatase Troponin I Total Protein Albumin Lipase Urine Color Yellow Urine Clarity Cloudy H Urine pH 6.0 Ur Specific [place] 1.016 Urine Protein 30 H Urine Glucose (UA) 500 or greater Urine Ketones Negative Urine Occult Blood Negative Urine Nitrate Negative Urine Bilirubin Negative Urine Urobilinogen Less than 2 Ur Leukocyte Esterase Large H Urine RBC 9 H Urine WBC Urine WBC Clumps Many H Ur Squamous Epith Cells 6 Urine Bacteria Occasional H Urine Mucus Few H Micro UA Comment Culture indicated Ur Microscopic Review Not Reportable Urine Culture Comments Culture indicated 07/07/18 07/07/18 17:03 19:24 WBC RBC Hgb Hct MCV MCH MCHC RDW Plt Count MPV Neut % (Auto) Lymph % (Auto) [place] % (Auto) Eos % (Auto) Baso % (Auto) Neut # (Auto) Lymph # (Auto) [place] # (Auto) Eos # (Auto) Baso # (Auto) WBC Differential Differential Comment ESR PT INR APTT Sodium Potassium Chloride Carbon Dioxide Anion Gap BUN Creatinine Estimated GFR POC Glucose 169 H 336 H Random Glucose Hemoglobin A1c Lactic Acid Calcium Magnesium Total Bilirubin AST ALT Alkaline Phosphatase Troponin I Total Protein Albumin Lipase Urine Color Urine Clarity Urine pH Ur Specific [place] Urine Protein Urine Glucose (UA) Urine Ketones Urine Occult Blood Urine Nitrate Urine Bilirubin Urine Urobilinogen Ur Leukocyte Esterase Urine RBC Urine WBC Urine WBC Clumps Ur Squamous Epith Cells Urine Bacteria Urine Mucus Micro UA Comment Ur Microscopic Review Urine Culture Comments - Imaging Impressions Foot X-Ray 07/06/18 22:56 CONCLUSION: 1. No evidence of acute fracture. 2. Deformity of the second toe proximal phalanx base and erosion of the second metatarsal head. Findings suggest chronic erosive arthritis. Difficult diagnosis includes rheumatoid arthritis and gout. 3. 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 No site of tarsal coalition is identified. Foot X-Ray 07/06/18 22:56 CONCLUSION: 1. Possible acute nondisplaced vertical fracture of the mid navicular bone. Recommend correlation with the site of the patient's pain. This is seen on only one view. 2. Old fifth toe proximal phalanx fracture. 3. Calcaneal spurs. Chest X-Ray 07/06/18 22:57 CONCLUSION: No acute cardiopulmonary disease identified. Foot CT 07/07/18 00:02 CONCLUSION: 1. Nondisplaced acute fracture of the navicular. 2. Subacute to old fracture of the fifth proximal phalanx with bone callus/ advanced bone bridging. Assessment and Plan - Plan 38 year old female with left heel fissure and right foot navicular fracture Patient examined and evaluated CT reviewed verticle non displaced fracture of navicula Patient to remain NWB to the right LE in posterior splint Will performed bedside debridement to left heel Will place orders to have supplies bedside Cont with IV abx per hospitalist Dress left heel with xerform, 4x4s, [place], MIMA
[2018-07-07] MEDS ORDERED: Lidocaine 1% Inj 30 ML Vial INFILTRATN ONE (21:34)
[2018-07-08] MEDS: Sod Chloride 0.9% Inj 1,000 ML IV.CONT SCH ×4 (00:37→22:00)
[2018-07-08] MEDS: Vancomycin Inj 1,500 MG in Sodium Chlor 0.9% Inj 500 ML IV.SIG SCH ×2 (00:42→13:10)
[2018-07-08] MEDS: Piperacil/Tazo 3.375 GM Premix 50 ML IV.SIG SCH ×4 (00:42→17:34)
[2018-07-08 07:40] LABS: Baso # (Auto) 0.1 th/mm3 (0.0-0.2); Baso % (Auto) 0.9 % (0.0-2.0); Eos # (Auto) 0.2 th/mm3 (0.0-0.4); Eos % (Auto) 2.7 % (0.0-4.0); Hematocrit 36.5 % (35.0-46.0); Hemoglobin 12.3 gm/dL (11.6-15.3); Lymph # (Auto) 3.2 th/mm3 (1.0-4.8); Lymph % (Auto) 41.2 % (9.0-44.0); Mean Corpuscular HGB Conc 33.5 % (32.0-36.0); Mean Corpuscular Hemoglobin 29.1 pg (27.0-34.0); Mean Corpuscular Volume 86.9 fL (80.0-100.0); Mean Platelet Volume 8.3 fL (7.0-11.0); Mono # (Auto) 0.6 th/mm3 (0.0-0.9); Mono % (Auto) 7.6 % (0.0-8.0); Neut # (Auto) 3.7 th/mm3 (1.8-7.7); Neut % (Auto) 47.6 % (16.0-70.0); Platelet Count 245 th/mm3 (150-450); Red Cell Distribution Width 14.4 % (11.6-17.2); White Blood Count 7.8 th/mm3 (4.0-11.0)
[2018-07-08 08:12] LABS: Anion Gap 9 meq/L (5-15); Blood Urea Nitrogen 9 mg/dL (7-18); Calcium 7.4 mg/dL (8.5-10.1); Carbon Dioxide 23.5 meq/L (21.0-32.0); Chloride 107 meq/L (98-107); Glomerular Filtration Rate Greater Than 89 mL/min (>89); Glucose,Random 274 mg/dL (74-106); Potassium 4.1 meq/L (3.5-5.1); Sodium 139 meq/L (136-145)
[2018-07-08 08:23] LABS: Albumin 2.5 g/dL (3.4-5.0); Calcium-Albumin Corrected 8.6 mg/dL (8.5-10.1)
[2018-07-08] MEDS: Insulin NovoLOG Aspart Correctional Sugar Inj SQ SCH ×4 (09:03→20:57)
[2018-07-08] MEDS: Gabapentin 300 MG Capsule PO SCH ×3 (09:04→17:07)
[2018-07-08] MEDS: Isosorbide Mononitrate 30 MG ER 24HR Tablet (Imdur) PO SCH (09:04)
[2018-07-08] MEDS ORDERED: Lidocaine 1% Inj 50 ML Vial INFILTRATN ONE (09:15)
--- NOTE | 2018-07-08 10:17 | ECG ---
Date Performed: 07/06/2018 Time Performed: 23:34:35 PTAGE: 38 years EKG: Sinus rhythm POSSIBLE LEFT ATRIAL ENLARGEMENT Consider ASMI, age indeterminate ABNORMAL ECG PREVIOUS TRACING : 04/05/2016 21.35 DOCTOR: Julian Rose Interpretating Date/Time 07/08/2018 10:15:16
--- NOTE | 2018-07-08 10:17 | ECG ---
Date Performed: 07/07/2018 Time Performed: 06:40:24 PTAGE: 38 years EKG: Sinus rhythm SEPTAL MYOCARDIAL INFARCTION Consider ASMI, age indeterminate ABNORMAL ECG PREVIOUS TRACING : 07/06/2018 23.34 DOCTOR: Julian Rose Interpretating Date/Time 07/08/2018 10:16:07
--- NOTE | 2018-07-08 14:16 | P.PNIM ---
Subjective Interval history: Patient seen and examined this morning at the bedside. Denied fever, chills, or noticing drainage from the feet at the base Physical Exam Vital signs: Last Vital Signs Temp 97.5 F L 07/08/18 12:00 Pulse 66 07/08/18 12:00 Resp 16 07/08/18 12:00 BP 146/87 H 07/08/18 12:00 Pulse Ox 97 07/08/18 12:00 Intake & Output 07/06/18 07/07/18 07/08/18 07/09/18 06:59 06:59 06:59 06:59 Intake Total 800 / 800 3365 / 3365 550 / 550 Balance 800 / 800 3365 / 3365 550 / 550 Weight 87.54 kg General: NAD HEENT: eomi CVS: S1/S2, rrr Resp: CTA bilaterally GI: soft, non tender, non distended, no guarding or rebound Ext: 2+ radial pulse. no calf edema Podiatry: RIGHT foot dressing inplace. LEFT heel dry without exudate but TTP Results Labs CBC & Chem 7: 07/08/18 06:02 07/08/18 06:02 Labs: Microbiology 07/06/18 23:35 Clean Catch Urine Urine Culture - Preliminary Group B beta Strep 07/06/18 23:20 Blood - Peripheral Aerobic Blood Culture - Preliminary No growth in 2 days 07/06/18 23:20 Blood - Peripheral Anaerobic Blood Culture - Preliminary No growth in 2 days 07/06/18 23:25 Blood - Peripheral Aerobic Blood Culture - Preliminary No growth in 2 days 07/06/18 23:25 Blood - Peripheral Anaerobic Blood Culture - Preliminary No growth in 2 days Assessment and Plan (1) Heel ulcer due to DM: Code(s): E11.621 - Type 2 diabetes mellitus with foot ulcer; L97.409 - Non-pressure chronic ulcer of unspecified heel and midfoot with unspecified severity Status: Acute (2) Diabetes: Code(s): E11.9 - Type 2 diabetes mellitus without complications Status: Acute Plan podiatry: heel ulceration - podiatry consulted and recommendations appreciated - dressing changes daily - bedside debridment planned today with podiatry bedside - blood culture follow up - pain control hydrocodone 5/325mg - continue vancomycin/zosyn --> consider transition to PO after debridement - vanco troph - Dress left heel with xerform, 4x4s, Troy, MIMA Ortho: non displaced fracture - continue boot and outpatient follow up on discharge endocrine: DM - hold oral hypoglycemic medications - insulin sliding scale while inpatient cardiology: htn - continue home regimen code: FC dvt ppx dispo: med/surg diet: diabetic Progress Note: Quality VTE Deep Vein Thrombosis/Pulmonary Embolism Present on Admission: No
--- NOTE | 2018-07-08 19:47 | P.PNPOD ---
Subjective Interval history: Patient seen bedside. Resting comfortably. Denies any N, V, F, Ch. Patient states she is in better spirits that yesterday. Physical Exam Vital signs: Vital Signs 07/07/18 20:00 07/08/18 00:00 07/08/18 04:51 Temperature 97.5 F L 97.7 F 98.5 F Pulse Rate 80 80 75 Respiratory Rate 12 16 18 Blood Pressure 138/77 141/79 H 154/82 H Pulse Oximetry 97 97 07/08/18 08:00 07/08/18 12:00 07/08/18 16:00 Temperature 98.0 F 97.5 F L 97.7 F Pulse Rate 76 66 77 Respiratory Rate 16 16 16 Blood Pressure 175/91 H 146/87 H 177/91 H Pulse Oximetry 96 97 98 07/08/18 18:13 Temperature Pulse Rate Respiratory Rate 20 Blood Pressure Pulse Oximetry Intake & Output 07/08/18 07/08/18 07/09/18 06:59 18:59 06:59 Intake Total 1615 / 1615 1815 / 1815 Balance 1615 / 1615 1815 / 1815 Intake: IV 1615 / 1615 1115 / 1115 NS Inj 1,000 ML @ 100 mls/hr IV 1000 / 1000 500 / 500 .CONT .Q10H [facility] Rx#:[id number] Zosyn 3.375 GM Premix 50 ML @ 100 / 100 100 / 100 100 mls/hr IV.SIG Q6H [facility] Rx#: [id number] Vancomycin Inj 1,500 MG In NS 515 / 515 515 / 515 Inj 500 ML @ 250 mls/hr IV.SIG Q12H [facility]T Rx#:[id number] Oral 700 / 700 Other: # Voids 3 Date of Last Bowel Movement 07/06/18 Narrative: Lower extremity physical exam: Vascular: Dorsalis pedis 1/4, posterior tibial 1/4 left LE. Capillary refill time within normal limits to digits x5 bilateral foot. Edema present to the left heel. Neuro: Gross sensation intact to bilateral lower extremity. Pinpoint sensation intact. No hyperalgesia noted to bilateral lower extremity Dermatology: Heel fissure noted to left posterior lateral heel with hyperkeratotic skin present, erythematous borders with edema present, improvement noted to erythema and edema. No drainage present to the heel fissure. Musculoskeletal: Tender to palpation to left foot and right foot dorsally. Posterior splint noted to the right LE. Medications and Allergies Active Medications: Active Medications Hydrocodone Bitart/Acetaminophen ([place] 5/325) 1 tab PO Q4H PRN PRN Reason: PAIN 1-10 AND/OR FEVER >101F Last Admin: 07/08/18 17:07 Dose: 1 tab Al Hydroxide/Mg Hydroxide (Milk Of Magnesia Liq) 30 ml PO Q12H PRN PRN Reason: Mild Constipation Atorvastatin Calcium (Lipitor) 10 mg PO HS [facility] Last Admin: 07/07/18 20:43 Dose: 10 mg Bisacodyl (Dulcolax Supp) 10 mg RECTAL DAILY PRN PRN Reason: SEVERE CONSITIPATION Carvedilol (Coreg) 3.125 mg PO BID [facility] Last Admin: 07/08/18 09:04 Dose: 3.125 mg Dextrose (D50w Vial) 50 ml IV.PUSH UNSCH PRN PRN Reason: PER HYPOGLYCEMIA PROTOCOL Gabapentin (Neurontin) 300 mg PO TID [facility] Last Admin: 07/08/18 17:07 Dose: 300 mg Glucagon (Glucagon Inj) 1 mg OTHER PRN PRN PRN Reason: for Hypoglycemia Protocol Sodium Chloride (Ns Inj) 1,000 mls @ 100 mls/hr IV.CONT .Q10H [facility] Last Infusion: 07/08/18 16:36 Dose: 100 mls/hr Piperacillin/Tazobactam/Dextrose (Zosyn 3.375 Gm Premix) 50 mls @ 100 mls/hr IV.SIG Q6H [facility] Last Infusion: 07/08/18 18:04 Dose: Infused Vancomycin HCl 1,500 mg/ (Sodium Chloride) 515 mls @ 250 mls/hr IV.SIG Q12H [facility] Last Infusion: 07/08/18 16:36 Dose: Infused Insulin Aspart (Novolog Insulin Correctional Sugar Inj) 0 unit SQ ACHS [facility]; Protocol Last Admin: 07/08/18 18:14 Dose: 10 unit Isosorbide Mononitrate (Imdur) 30 mg PO DAILY [facility] Last Admin: 07/08/18 09:04 Dose: 30 mg Lactulose (Lactulose Liq) 30 ml PO DAILY PRN PRN Reason: SEVERE CONSITIPATION Miscellaneous Information ([facility] Ordered Lab Info) 0 each OTHER ONCE ONE Stop: 07/08/18 23:46 Ondansetron HCl (Zofran Inj) 4 mg IV.PUSH Q6H PRN PRN Reason: NAUSEA OR VOMITING Last Admin: 07/07/18 13:16 Dose: 4 mg Pantoprazole Sodium (Protonix) 40 mg PO DAILY [facility] Last Admin: 07/08/18 09:04 Dose: 40 mg Pharmacy Profile Note (Vancomycin Consult Pharmacy) 1 each OTHER UNSCH PRN PRN Reason: Pharmacy to dose Sennosides (Senokot) 17.2 mg PO Q12H PRN PRN Reason: Moderate Constipation Sodium Chloride (Ns Flush) 2 ml IV.FLUSH BID [facility] Last Admin: 07/08/18 09:05 Dose: Not Given Sodium Chloride (Ns Flush) 2 ml IV.FLUSH PRN PRN PRN Reason: FLUSH AFTER USING IV ACCESS Allergies Allergy/AdvReac Type Severity Reaction Status Date / Time citalopram Allergy Intermediate NAUSEA Verified 07/06/18 22:31 tramadol Allergy Intermediate NAUSEA Verified 07/06/18 22:31 ketorolac Allergy Unknown Hives Verified 07/06/18 22:31 morphine Allergy Unknown Hives Verified 07/06/18 22:31 Home Medications Medication Instructions Recorded Confirmed Type aspirin [Aspir-81] 81 mg PO DAILY 07/06/18 07/06/18 History atorvastatin 10 mg PO DAILY 07/06/18 07/06/18 History carvedilol 3.125 mg PO BID 07/06/18 07/06/18 History gabapentin 300 mg PO TID 07/06/18 07/06/18 History isosorbide mononitrate 30 mg PO DAILY 07/06/18 07/06/18 History meloxicam 15 mg PO DAILY 07/06/18 07/06/18 History metformin 500 mg PO BID 07/06/18 07/06/18 History nitroglycerin [Nitrostat] 0.4 mg SUBLINGUAL Q5-15M PRN 07/06/18 07/06/18 History pantoprazole 40 mg PO DAILY 07/06/18 07/06/18 History ramipril 2.5 mg PO DAILY 07/06/18 07/06/18 History ticagrelor [Brilinta] 90 mg PO BID 07/06/18 07/06/18 History Results - Labs CBC & Chem 7: 07/08/18 06:02 07/08/18 06:02 Laboratory Results - last 24 hr 07/06/18 07/06/18 07/08/18 23:25 23:35 06:02 WBC 7.8 RBC 4.20 Hgb 12.3 Hct 36.5 MCV 86.9 MCH 29.1 MCHC 33.5 RDW 14.4 Plt Count 245 MPV 8.3 Neut % (Auto) 47.6 Lymph % (Auto) 41.2 Lane % (Auto) 7.6 Eos % (Auto) 2.7 Baso % (Auto) 0.9 Neut # (Auto) 3.7 Lymph # (Auto) 3.2 Lane # (Auto) 0.6 Eos # (Auto) 0.2 Baso # (Auto) 0.1 WBC Differential . Differential Comment Auto diff final Sodium Potassium Chloride Carbon Dioxide Anion Gap BUN Creatinine Estimated GFR POC Glucose Random Glucose Hemoglobin A1c 10.6 H Calcium Calcium Adj for Albumin Albumin Urine Color Yellow Urine Clarity Cloudy H Urine pH 6.0 Ur Specific [place] 1.016 Urine Protein 30 H Urine Glucose (UA) 500 or greater Urine Ketones Negative Urine Occult Blood Negative Urine Nitrate Negative Urine Bilirubin Negative Urine Urobilinogen Less than 2 Ur Leukocyte Esterase Large H Urine RBC 9 H Urine WBC Urine WBC Clumps Many H Ur Squamous Epith Cells 6 Urine Bacteria Occasional H Urine Mucus Few H Micro UA Comment Culture indicated Urine Culture Comments Culture indicated 07/08/18 07/08/18 07/08/18 06:02 08:15 13:06 WBC RBC Hgb Hct MCV MCH MCHC RDW Plt Count MPV Neut % (Auto) Lymph % (Auto) Lane % (Auto) Eos % (Auto) Baso % (Auto) Neut # (Auto) Lymph # (Auto) Lane # (Auto) Eos # (Auto) Baso # (Auto) WBC Differential Differential Comment Sodium 139 Potassium 4.1 Chloride 107 Carbon Dioxide 23.5 Anion Gap 9 BUN 9 Creatinine 0.67 Estimated GFR Greater than 89 POC Glucose 252 H 261 H Random Glucose 274 H Hemoglobin A1c Calcium 7.4 L* D Calcium Adj for Albumin 8.6 Albumin 2.5 L D Urine Color Urine Clarity Urine pH Ur Specific [place] Urine Protein Urine Glucose (UA) Urine Ketones Urine Occult Blood Urine Nitrate Urine Bilirubin Urine Urobilinogen Ur Leukocyte Esterase Urine RBC Urine WBC Urine WBC Clumps Ur Squamous Epith Cells Urine Bacteria Urine Mucus Micro UA Comment Urine Culture Comments 07/08/18 17:10 WBC RBC Hgb Hct MCV MCH MCHC RDW Plt Count MPV Neut % (Auto) Lymph % (Auto) Lane % (Auto) Eos % (Auto) Baso % (Auto) Neut # (Auto) Lymph # (Auto) Lane # (Auto) Eos # (Auto) Baso # (Auto) WBC Differential Differential Comment Sodium Potassium Chloride Carbon Dioxide Anion Gap BUN Creatinine Estimated GFR POC Glucose 302 H Random Glucose Hemoglobin A1c Calcium Calcium Adj for Albumin Albumin Urine Color Urine Clarity Urine pH Ur Specific [place] Urine Protein Urine Glucose (UA) Urine Ketones Urine Occult Blood Urine Nitrate Urine Bilirubin Urine Urobilinogen Ur Leukocyte Esterase Urine RBC Urine WBC Urine WBC Clumps Ur Squamous Epith Cells Urine Bacteria Urine Mucus Micro UA Comment Urine Culture Comments Microbiology 07/06/18 23:35 Clean Catch Urine Urine Culture - Preliminary Group B beta Strep 07/06/18 23:20 Blood - Peripheral Aerobic Blood Culture - Preliminary No growth in 2 days 07/06/18 23:20 Blood - Peripheral Anaerobic Blood Culture - Preliminary No growth in 2 days 07/06/18 23:25 Blood - Peripheral Aerobic Blood Culture - Preliminary No growth in 2 days 07/06/18 23:25 Blood - Peripheral Anaerobic Blood Culture - Preliminary No growth in 2 days Assessment and Plan - Plan 38 year old female with left heel fissure and right foot navicular fracture Patient examined and evaluated CT reviewed non displaced fracture of navicula Patient to remain NWB to the right LE in posterior splint Bedside debridement to left heel performed Consent signed and obtained Nursing present and timeout completed Cont with IV abx per hospitalist OK to discharge per podiatry if clinical improvement noted tomorrow Transition to oral antibiotics Dressed left heel with xerform, 4x4s, Troy, MIMA Silvadene to be applied to the left heel ulcer Patient to follow up with me Dr. Colon in office within 1 week of discharge Full thickness excsional debridement to left heel to subcutaneous tissue with 11 ' blade. Site irrigated and dressed with xerform and DSD.
[2018-07-08] MEDS ORDERED: Pharmacy Ordered Lab Info OTHER ONE (23:45)
[2018-07-09] MEDS: Piperacil/Tazo 3.375 GM Premix 50 ML IV.SIG SCH ×3 (00:52→13:06)
[2018-07-09] MEDS: Vancomycin Inj 1,500 MG in Sodium Chlor 0.9% Inj 500 ML IV.SIG SCH ×2 (02:10→13:00)
[2018-07-09 05:10] LABS: Hematocrit 35.3 % (35.0-46.0); Hemoglobin 12.8 gm/dL (11.6-15.3); Mean Corpuscular Hemoglobin 30.8 pg (27.0-34.0); Mean Corpuscular Volume 84.5 fL (80.0-100.0); Mean Platelet Volume 7.9 fL (7.0-11.0); Platelet Count 252 th/mm3 (150-450); Red Blood Count 4.17 mil/mm3 (4.00-5.30); Red Cell Distribution Width 14.4 % (11.6-17.2); White Blood Count 8.2 th/mm3 (4.0-11.0)
[2018-07-09 05:22] LABS: Mean Corpuscular HGB Conc 36.4 % (32.0-36.0)
[2018-07-09 05:35] LABS: Anion Gap 8 meq/L (5-15); Blood Urea Nitrogen 7 mg/dL (7-18); Calcium 7.9 mg/dL (8.5-10.1); Carbon Dioxide 24.1 meq/L (21.0-32.0); Chloride 104 meq/L (98-107); Glomerular Filtration Rate Greater Than 89 mL/min (>89); Glucose,Random 236 mg/dL (74-106); Magnesium 1.7 mg/dL (1.5-2.5); Potassium 3.9 meq/L (3.5-5.1); Sodium 136 meq/L (136-145)
[2018-07-09] MEDS: Sod Chloride 0.9% Inj 1,000 ML IV.CONT SCH ×2 (06:02→16:36)
[2018-07-09] MEDS ORDERED: hydrALAZINE 25 MG Tablet PO ONE (06:37)
[2018-07-09] MEDS: Gabapentin 300 MG Capsule PO SCH ×2 (08:59→13:45)
[2018-07-09] MEDS: Isosorbide Mononitrate 30 MG ER 24HR Tablet (Imdur) PO SCH (08:59)
[2018-07-09 09:10] VITALS: RESP 16; O2SAT 97
[2018-07-09] MEDS: Insulin NovoLOG Aspart Correctional Sugar Inj SQ SCH ×2 (11:20→13:21)
--- NOTE | 2018-07-09 12:43 | P.DCO ---
Diagnosis (1) Fx navicular, foot-closed: Status: Acute Home Health Nursing Order: Wound care and dressing changes Instructions: Please dress left heel with xeroform, 4x4s, mac and MIMA. Silvadene and DSD to be applied to left heel ulcer Do not change dressing on RIGHT foot s/p fracture. Podiatry to follow outpatient in office. Case Management Consult Case Management Consult-Home Health: Yes I have seen patient Carleen Moody on 07/09/18. My clinical findings support the need for the requested home health care services because: Limited ability to care for self, Infection with risk of complications and Injectable medication education/administration I certify that my clinical findings support that this patient is homebound because: Unsafe to leave home unassisted and Non-ambulatory: confined to bed or chair _ (1) Fx navicular, foot-closed Qualifiers: Encounter type: initial encounter Fracture alignment: nondisplaced Fracture healing: Laterality: right Qualified Code(s): S92.254A - Nondisplaced fracture of navicular [scaphoid] of right foot, initial encounter for closed fracture
[2018-07-09 13:18] VITALS: BP 147/82; PULSE 75; TEMP 97.9
--- NOTE | 2018-07-09 15:27 | P.DS ---
DS: Providers Date of admission: 07/07/18 03:00 Primary care physician: Flor Primary Care Physician Patient is a pleasant 38-year-old female with past medical history of hyperlipidemia, hypertension, diabetes who presents to emergency department for left foot pain. Patient reports that in February 2018 she underwent a incision and drainage of her left heel and that her wound has not healed since and is progressively worsened prompting her to come to emergency department. Patient was admitted to [facility] for the following treatments and services were provided in her care. In emergency department there was pain with palpation over the top of the right foot with an x-ray revealing a nondisplaced acute fracture of the navicular bone for which podiatry was consulted and patient was placed in an offloading dressing. Podiatry also performed a bedside debridement on the left heel and patient was started on antibiotics. While hospitalized wheelchair was ordered for patient as she was instructed to be nonweightbearing on the lower extremity. Patient clinically improved during hospitalization and was discharged on doxycycline 100 mg p.o. twice daily for 5 days additional to the dose of antibiotics and patient as well as Lovenox 40 mg subcu daily until followed up outpatient with podiatry within 1 week. Consults: 07/07/18 03:01 Consult to Podiatry Routine Consulting Provider: Sarita Colon Reason for Consultation: 1. Nondisplaced acute fracture of the navicular 2. Lt heel wound non healing Notified:: Service Spoke with:: [place] Date Notified:: 07/07/18 Time Notified:: 03:29 Ordering Provider: RADHA Brief History from admission: 38 y/o female with a history of HTN, HLD, diabetic neuropathy, RI, and DM presented to the ER with complaints of left foot pain. She states in February she underwent a I&D of her left heel and it has not healed since. She states over the last 4 days the pain has increased. She states the pain is throbbing, intermittent, 8/10, worse with movement, no radiation or associated symptoms. She states otc tylenol and motrin has not been helping. She states she has been out of her chronic medications since August due to loss in medicaid. She denies any chest pain, sob, fever or chills. Upon evaluation in ER patient was found to have a pain with palpation to the top of the right foot, x ray reveled a Nondisplaced acute fracture of the navicular. DS: Diagnosis Discharge Diagnosis (1) Fx navicular, foot-closed: Status: Acute DS: Summary Patient is a pleasant 38-year-old female with past medical history of hyperlipidemia, hypertension, diabetes who presents to emergency department for left foot pain. Patient reports that in February 2018 she underwent a incision and drainage of her left heel and that her wound has not healed since and is progressively worsened prompting her to come to emergency department. Patient was admitted to [facility] for the following treatments and services were provided in her care. In emergency department there was pain with palpation over the top of the right foot with an x-ray revealing a nondisplaced acute fracture of the navicular bone for which podiatry was consulted and patient was placed in an offloading dressing. Podiatry also performed a bedside debridement on the left heel and patient was started on antibiotics. While hospitalized wheelchair was ordered for patient as she was instructed to be nonweightbearing on the lower extremity. Patient clinically improved during hospitalization and was discharged on doxycycline 100 mg p.o. twice daily for 5 days additional to the dose of antibiotics and patient as well as Lovenox 40 mg subcu daily until followed up outpatient with podiatry within 1 week. Time Spent with Patient Total time spent providing and/or coordinating discharge services: > 45 minutes Quality: VTE Deep Vein Thrombosis/Pulmonary Embolism Present on Admission: No Exam Narrative Exam Narrative: General: No acute distress, conversational Cardiovascular: S1/S2 Respiratory: Clear to auscultation anteriorly and posteriorly Gastro-intestinal: Soft, nontender, nondistended, no guarding or rebound appreciated Extremity: Right lower extremity dressing in place. Left lower heel dressing in place. Minimal swelling near dorsum of left foot. Palpable pulses and dorsalis pedis region and left lower extremity. Results Labs on day of discharge: Labs from last 24 hours 07/09/18 07/09/18 07/09/18 13:13 09:36 04:51 WBC 8.2 RBC 4.17 Hgb 12.8 Hct 35.3 MCV 84.5 MCH 30.8 MCHC 36.4 H RDW 14.4 Plt Count 252 MPV 7.9 Sodium Potassium Chloride Carbon Dioxide Anion Gap BUN Creatinine Estimated GFR POC Glucose 255 H 326 H Random Glucose Calcium Magnesium Vancomycin Trough 07/09/18 07/08/18 07/08/18 04:51 23:45 20:48 WBC RBC Hgb Hct MCV MCH MCHC RDW Plt Count MPV Sodium 136 Potassium 3.9 Chloride 104 Carbon Dioxide 24.1 Anion Gap 8 BUN 7 Creatinine 0.71 Estimated GFR Greater than 89 POC Glucose 291 H Random Glucose 236 H Calcium 7.9 L Magnesium 1.7 Vancomycin Trough 10.1 H 07/08/18 17:10 WBC RBC Hgb Hct MCV MCH MCHC RDW Plt Count MPV Sodium Potassium Chloride Carbon Dioxide Anion Gap BUN Creatinine Estimated GFR POC Glucose 302 H Random Glucose Calcium Magnesium Vancomycin Trough Preliminary micro results at discharge 07/06/18 23:20 Aerobic Blood Culture - Preliminary Blood - Peripheral No growth in 3 days Anaerobic Blood Culture - Preliminary No growth in 3 days 07/06/18 23:25 Aerobic Blood Culture - Preliminary Blood - Peripheral No growth in 3 days Anaerobic Blood Culture - Preliminary No growth in 3 days Impressions ITS Impressions Foot X-Ray 07/06/18 22:56 CONCLUSION: 1. No evidence of acute fracture. 2. Deformity of the second toe proximal phalanx base and erosion of the second metatarsal head. Findings suggest chronic erosive arthritis. Difficult diagnosis includes rheumatoid arthritis and gout. 3. 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 No site of tarsal coalition is identified. Chest X-Ray 07/06/18 22:57 CONCLUSION: No acute cardiopulmonary disease identified. Foot CT 07/07/18 00:02 CONCLUSION: 1. Nondisplaced acute fracture of the navicular. 2. Subacute to old fracture of the fifth proximal phalanx with bone callus/ advanced bone bridging. Discharge Plan Discharge Disposition Patient Disposition: /Home Health Service Discharge Condition Condition: Good Discharge Order Discharge Orders: Discharge Order (Routine); Ordered 07/09/18 Ordered By: Willy Abraham Discharge Details Anticipated Discharge Date: 07/09/18 Discharge Comment: cleared for discharge. Physicians Team ED Provider: Odalys Redman Primary Care Provider: Primary Care Maricruz,Flor Attending Provider: Willy Abraham Other Providers: Sarita Colon Rxs /Orders / Referrals /Forms Prescriptions: New doxycycline hyclate 100 mg tablet 100 mg PO BID 5 Days Qty: 10 RF: 0 enoxaparin [Lovenox] 40 mg/0.4 mL syringe 40 mg SQ DAILY 7 Days Qty: 2.8 RF: 0 Continue metformin 500 mg Tablet 500 mg PO BID RF: 0 atorvastatin 10 mg Tablet 10 mg PO DAILY RF: 0 meloxicam 15 mg Tablet 15 mg PO DAILY RF: 0 isosorbide mononitrate 30 mg Tablet Extended Release 24 Hr 30 mg PO DAILY RF: 0 aspirin [Aspir-81] 81 mg Tablet,Delayed Release (Dr/Ec) 81 mg PO DAILY RF: 0 carvedilol 3.125 mg Tablet 3.125 mg PO BID RF: 0 pantoprazole 40 mg Tablet,Delayed Release (Dr/Ec) 40 mg PO DAILY RF: 0 ramipril 2.5 mg Capsule 2.5 mg PO DAILY RF: 0 nitroglycerin [Nitrostat] 0.4 mg Tablet, Sublingual 0.4 mg SUBLINGUAL Q5-15M PRN (Reason: Pain) RF: 0 gabapentin 300 mg Capsule 300 mg PO TID RF: 0 ticagrelor [Brilinta] 90 mg Tablet 90 mg PO BID RF: 0 Ambulatory Orders / Order Sets / DME: Wheelchair (1 each) (Routine) Location: Determined by Patient Ordered By: Kailey Flores Referrals: Sarita Colon DPM [Physician] - See Instructions (follow up 1 week) Primary Care Flor Alcantara [Primary Care Provider] - See Instructions (Follow up your Primary doctor in 7 days ) Status ED Status: Left Department
== END 2018-07-09 16:38 | disposition home health service (06) ==
LOC: NEPC 22:14 → NEDA 07-07 03:00 → NEPFCDU 07-07 03:51
PROVIDERS: ADMIT Internal Medicine; ATTEND Internal Medicine
DX: E78.5 Hyperlipidemia, unspecified; Z83.3 Family history of diabetes mellitus; F17.210 Nicotine dependence, cigarettes, uncomplicated; S92.254A Nondisplaced fracture of navicular [scaphoid] of right foot, initial encounter for closed fracture; I25.10 Atherosclerotic heart disease of native coronary artery without angina pectoris; N39.0 Urinary tract infection, site not specified; Z79.02 Long term (current) use of antithrombotics/antiplatelets; I25.2 Old myocardial infarction; L97.429 Non-pressure chronic ulcer of left heel and midfoot with unspecified severity; I10 Essential (primary) hypertension; E11.621 Type 2 diabetes mellitus with foot ulcer; Z79.84 Long term (current) use of oral hypoglycemic drugs; E11.40 Type 2 diabetes mellitus with diabetic neuropathy, unspecified; Z95.5 Presence of coronary angioplasty implant and graft; L03.116 Cellulitis of left lower limb